=== PATIENT | male | born 2000 | race African-American/Black ===

== ENCOUNTER 2021-07-02 16:15 | Emergency (ER) | payer SELFPAY ==
[~2021-07-02] VITALS: Ht 182.9 cm; Wt 72.6 kg
[2021-07-02 16:28] VITALS: BP 101/66
--- NOTE | 2021-07-02 16:28 | NUR ---
BIBSELF C/O BADY ACHES SINCE THIS MORNING, NOT COVID VACCINATED. TOLERATING R/A WELL WITH NO SOB
--- NOTE | 2021-07-02 16:49 | NUR ---
Patient discharged to home in stable condition. Written and verbal after care instructions given. Patient verbalizes understanding of instruction. PT ambulatory with a steady gait
--- NOTE | 2021-07-02 16:49 | NUR ---
COVID ANTIGEN SWAB COLLECTED AND SENT TO LAB
== END 2021-07-02 20:37 | disposition home or self-care (01) ==
LOC: ER 16:20
DX: R50.9 Fever, unspecified (principal); Z20.822 Contact with and (suspected) exposure to COVID-19
CPT/HCPCS: 87426; 99283; C9803